=== PATIENT | female | born 2000 | race African-American/Black ===

== ENCOUNTER 2019-04-03 23:13 | Observation (INO) ==
[2019-04-03 23:54] LABS: Amphetamine Screen,Urine Negative ng/mL (Cutoff=1000); Barbiturate Screen,Urine Negative ng/mL (Cutoff=200); Benzodiazepines Screen,Urine Negative ng/mL (Cutoff=200); Cannabinoid Screen,Urine Negative ng/mL (Cutoff = 50); Cocaine Screen,Urine Negative ng/mL (Cutoff= 300); Opiate Screen,Urine Negative ng/mL (Cutoff=300); Phencyclidine Screen,Urine Negative ng/mL (Cutoff=25)
[2019-04-04 02:28] LABS: Candida DNA Not Detected (Not Detect); Gardnerella DNA Not Detected (Not Detect); Trichomonas DNA Not Detected (Not Detect)
== END 2019-04-04 02:50 | disposition home or self-care (01) ==
LOC: 1NENULAB
PROVIDERS: ADMIT Registered Nurse; ATTEND Registered Nurse

== ENCOUNTER 2019-04-05 16:01 | Inpatient (IN) ==
[~2019-04-05 16:01] MED LIST: *HR* Nalbuphine 10 MG/ML AMPUL IVP PRN; Famotidine 20 MG/2 ML VIAL IVP PRN; Lidocaine 1% 20 ML MDV INFILT PRN; Metoclopramide 10 MG/2 ML VIAL IVP PRN; Naloxone 0.4 MG/ML INJ IVP PRN; Ondansetron 4 MG/2 ML VIAL IVP PRN
[2019-04-05] MEDS ORDERED: Oxytocin 20 units/ LR 1000 mL 20 UNIT/1,000 ML BAG IVC SCH (16:15)
[2019-04-05] MEDS ORDERED: Ringers Solution, Lactated 1,000 ML IVC SCH (16:15)
[2019-04-05 16:21] LABS: Amphetamine Screen,Urine Negative ng/mL (Cutoff=1000); Barbiturate Screen,Urine Negative ng/mL (Cutoff=200); Benzodiazepines Screen,Urine Negative ng/mL (Cutoff=200); Cannabinoid Screen,Urine Negative ng/mL (Cutoff = 50); Cocaine Screen,Urine Negative ng/mL (Cutoff= 300); Opiate Screen,Urine Negative ng/mL (Cutoff=300); Phencyclidine Screen,Urine Negative ng/mL (Cutoff=25)
[2019-04-05 17:04] LABS: Basophils % 0.2 %; Eosinophils % 0.2 %; Hematocrit 32.4 % (35.3-44.9); Hemoglobin 10.4 g/dL (11.5-15.4); Immature Granulocytes % 0.7 % (0-4); Lymphocytes # 1.9 K/mcL (0.6-4.6); Lymphocytes % 15.9 %; Mean Corpuscular HGB Conc 32.1 g/dL (31.6-35.5); Mean Corpuscular Volume 90.3 fL (83.0-100.0); Mean Platelet Volume 12.2 fL (9.4-12.4); Monocytes # 0.9 K/mcL (0.0-1.3); Monocytes % 7.5 %; Neutrophils # 9.2 K/mcL (1.6-8.9); Platelet Count 123 K/mcL (140-400); Red Blood Count 3.59 M/mcL (3.82-4.97); Red Cell Distribution Width 13.6 % (11.5-14.5); Segmented Neutrophils % 75.5 %; White Blood Count 12.2 K/mcL (4.3-11.1)
[2019-04-05] MEDS ORDERED: *HR* FentaNYL (PF) 100 MCG/2 ML VIAL EP ONE (19:06)
[2019-04-05] MEDS ORDERED: Ropivacaine/PF 0.2% 20 ML VIAL EP ONE (19:06)
[2019-04-05] MEDS ORDERED: Epidural Premix (fent/bupiv) 110 ML EP SCH (19:15)
[2019-04-05] MEDS ORDERED: Penicillin G Potassium 5,000,000 UNIT in 0.9 % Sodium Chloride Mini Bag 100 ML IVPB ONE (19:42)
[2019-04-05] MEDS ORDERED: Penicillin G Potassium 2,500,000 UNIT in 0.9 % Sodium Chloride 100 ML IVPB SCH (20:00)
[2019-04-06] MEDS ORDERED: Sennosides 8.6 MG TABLET PO PRN (01:30)
[2019-04-06] MEDS ORDERED: Benzocaine/Menthol 56 GM AEROSOL SPRAY TP PRN (01:30)
[2019-04-06] MEDS ORDERED: Oxytocin 20 units/ LR 1000 mL 20 UNIT/1,000 ML BAG IVC SCH (01:30)
[2019-04-06] MEDS ORDERED: Acetaminophen 325 MG TABLET PO PRN (01:30)
[2019-04-06] MEDS: Ibuprofen 600 MG TABLET PO PRN ×2 (06:46→16:47)
[2019-04-06] MEDS: Prenatal Vit/FA 1 EACH TABLET PO SCH (09:21)
[2019-04-07] MEDS: Ibuprofen 600 MG TABLET PO PRN (09:08)
[2019-04-07] MEDS: Prenatal Vit/FA 1 EACH TABLET PO SCH (09:08)
[2019-04-07 10:16] VITALS: BP 112/77
== END 2019-04-07 12:04 | disposition home or self-care (01) | DRG 806 ==
LOC: 1NENULAB → 1NENUOBS 04-06 01:28
PROVIDERS: ADMIT Obstetrics & Gynecology; ATTEND Obstetrics & Gynecology